=== PATIENT | male | born 1960 | race Caucasian/White ===

== ENCOUNTER → 2024-12-21 | Outpatient (CLI) | payer OTHER, SELFPAY ==
[2024-12-21 09:59] LABS: PSA,Total - Annual Screen 0.47 ng/mL (0.02-4.00)
== END | disposition home or self-care (01) ==
LOC: LAB 13:24
PROVIDERS: PCP Nurse Practitioner Family; Referring Provider Nurse Practitioner; Visit Provider Nurse Practitioner
DX: Z12.5 Encounter for screening for malignant neoplasm of prostate (principal)
CPT/HCPCS: 36415; 84153; G0103